=== PATIENT | male | born 1935 | race Caucasian/White ===

== ENCOUNTER 2024-11-07 12:23 | Inpatient (IN) ==
[2024-11-07] MEDS: ONDANSETRON 4 MG/2 ML VIAL IV ONE (13:07)
[2024-11-07] MEDS: cefTRIAXone 1 GM VIAL IV ONE (13:19)
[2024-11-07] MEDS: AZITHROMYCIN 500 MG in 0.9 % SODIUM CHLORIDE 250 ML IV ONE (13:41)
[2024-11-07 13:47] LABS: Basophils # (Auto) 0.01 K/mcL (0.00-0.30); Basophils % (Auto) 0 % (0.0-2.0); Eosinophils # (Auto) 0.02 K/mcL (0.00-0.70); Eosinophils % (Auto) 0.1 % (0.0-7.0); Hematocrit 52.4 % (40.1-51.0); Hemoglobin 16.8 g/dL (13.7-17.5); Lymphocytes # (Auto) 2.04 K/mcL (1.50-4.80); Mean Cell Volume 100.6 fL (80.0-100.0); Mean Corpuscular HGB Conc 32.1 g/dL (31.0-36.0); Mean Platelet Volume 10.2 fL (8.8-12.5); Monocytes # (Auto) 0.52 K/mcL (0.10-0.90); Monocytes % (Auto) 2.6 % (1.0-12.0); Neutrophils % (Auto) 87.1 % (38.0-78.0); Platelet Count 184 K/mcL (140-440); RBC 5.21 M/mcL (4.63-6.08); WBC 20.3 K/mcL (4.5-11.0)
[2024-11-07 14:08] LABS: ALT/SGPT 33 U/L (<40); AST/SGOT 30 U/L (<40); Albumin 4.2 gm/dL (3.2-5.2); Albumin/Globulin Ratio 1.6 (1.0-2.3); Alkaline Phosphatase 57 U/L (39-117); Bilirubin,Total 0.8 mg/dL (0.1-1.0); Blood Urea Nitrogen 24 mg/dL (8-23); Calcium 9.4 mg/dL (8.6-10.4); Carbon Dioxide 19 mmol/L (22-30); Chloride 102 mmol/L (96-108); Globulin 2.7 gm/dL (2.2-3.7); Glomerular Filtration Rate 38; Glucose 227 mg/dL (70-105); Potassium 4.8 mmol/L (3.3-5.1); Sodium 137 mmol/L (133-145)
[2024-11-07] MEDS ORDERED: BENZOCAINE/MENTHOL 1 LOZENGE PO PRN ×2 (14:27→16:01)
[2024-11-07] MEDS ORDERED: SUCRETS LOZENGE PO PRN (14:29)
[2024-11-07] MEDS: 0.9 % SODIUM CHLORIDE 1,000 ML IV ONE (14:33)
[2024-11-07] MEDS ORDERED: POLYETHYLENE GLYCOL 3350 17 GM PACKET PO PRN (16:01)
[2024-11-07] MEDS ORDERED: DEXTROSE 50% 50 ML VIAL IV PRN (16:01)
[2024-11-07] MEDS ORDERED: METOPROLOL TARTRATE 5 MG/5 ML VIAL IV PRN (16:01)
[2024-11-07] MEDS ORDERED: ONDANSETRON 4 MG/2 ML VIAL IV PRN (16:01)
[2024-11-07] MEDS ORDERED: METOCLOPRAMIDE 10 MG/2 ML VIAL IV PRN (16:01)
[2024-11-07] MEDS ORDERED: POTASSIUM CHLORIDE 40 MEQ in DEXTROSE 5% IN WATER 500 ML IV PRN (16:01)
[2024-11-07] MEDS ORDERED: POTASSIUM CHLORIDE 20 MEQ TABLET PO PRN ×2 (16:01)
[2024-11-07] MEDS ORDERED: DEXTROSE 31 GM ORAL.SUSP PO PRN (16:01)
[2024-11-07] MEDS ORDERED: MAGNESIUM SULFATE 2 GM/50 ML BAG IV PRN (16:01)
[2024-11-07] MEDS ORDERED: SENNOSIDES 1 TABLET PO PRN (16:01)
[2024-11-07] MEDS: cefTRIAXone 1 GM VIAL IV SCH (16:40)
[2024-11-07] MEDS: AZITHROMYCIN 500 MG in DEXTROSE 5% IN WATER 250 ML IV SCH (16:40)
[2024-11-07] MEDS: INSULIN LISPRO 1 UNIT/0.01 ML UNIT SQ SCH (17:19)
[2024-11-07] MEDS: REMDESIVIR 200 MG in 0.9 % SODIUM CHLORIDE 250 ML IV ONE (19:10)
[2024-11-07] MEDS: DEXAMETHASONE 4 MG TABLET PO SCH (19:12)
[2024-11-07] MEDS: DOCUSATE SODIUM 100 MG CAPSULE PO SCH (20:25)
[2024-11-07] MEDS: APIXABAN 5 MG TABLET PO SCH (20:31)
[2024-11-07] MEDS: IPRATROPIUM/ALBUTEROL 3 ML AMPUL.NEB NEB PRN (20:55)
[2024-11-08] MEDS: 0.9 % SODIUM CHLORIDE 10 ML SYRINGE IV SCH (00:30)
[2024-11-08 06:33] LABS: Basophils # (Auto) 0.02 K/mcL (0.00-0.30); Basophils % (Auto) 0.1 % (0.0-2.0); Eosinophils # (Auto) 0.01 K/mcL (0.00-0.70); Eosinophils % (Auto) 0 % (0.0-7.0); Hematocrit 46.2 % (40.1-51.0); Hemoglobin 15.2 g/dL (13.7-17.5); Lymphocytes # (Auto) 1.74 K/mcL (1.50-4.80); Lymphocytes % (Auto) 7.3 % (15.5-49.0); Mean Cell Volume 97.1 fL (80.0-100.0); Mean Corpuscular HGB Conc 32.9 g/dL (31.0-36.0); Mean Platelet Volume 11.2 fL (8.8-12.5); Monocytes # (Auto) 0.53 K/mcL (0.10-0.90); Monocytes % (Auto) 2.2 % (1.0-12.0); Neutrophils % (Auto) 89.8 % (38.0-78.0); Platelet Count 131 K/mcL (140-440); RBC 4.76 M/mcL (4.63-6.08); Red Cell Distribution Width 13.9 % (11.5-14.5); WBC 23.8 K/mcL (4.5-11.0)
[2024-11-08 07:18] LABS: ALT/SGPT 26 U/L (<40); AST/SGOT 35 U/L (<40); Albumin 3.4 gm/dL (3.2-5.2); Albumin/Globulin Ratio 1.4 (1.0-2.3); Alkaline Phosphatase 53 U/L (39-117); Bilirubin,Direct 0.3 mg/dL (<0.3); Bilirubin,Total 0.5 mg/dL (0.1-1.0); Blood Urea Nitrogen 28 mg/dL (8-23); Calcium 8.7 mg/dL (8.6-10.4); Carbon Dioxide 20 mmol/L (22-30); Chloride 107 mmol/L (96-108); Globulin 2.4 gm/dL (2.2-3.7); Glomerular Filtration Rate 41; Glucose 174 mg/dL (70-105); Lactate Dehydrogenase 255 U/L (135-225); Phosphorous 3.3 mg/dL (2.5-4.5); Potassium 4.3 mmol/L (3.3-5.1); Sodium 139 mmol/L (133-145); Triglycerides 31 mg/dL (<150); Uric Acid 6.5 mg/dL (2.5-8.0)
[2024-11-08] MEDS: cefTRIAXone 1 GM VIAL IV SCH (08:33)
[2024-11-08] MEDS ORDERED: amLODIPine 10 MG TABLET PO SCH (09:00)
[2024-11-08] MEDS: FINASTERIDE 5 MG TABLET PO SCH (10:17)
[2024-11-08] MEDS: LEVOTHYROXINE SODIUM 112 MCG TABLET PO SCH (10:18)
[2024-11-08] MEDS: SODIUM BICARBONATE 650 MG TABLET PO SCH (10:18)
[2024-11-08] MEDS: TOCILIZUMAB 700 MG in 0.9 % SODIUM CHLORIDE 65 ML IV SCH (10:18)
[2024-11-08] MEDS: TAMSULOSIN 0.4 MG CAPSULE PO SCH (10:18)
[2024-11-08] MEDS: FUROSEMIDE 40 MG/4 ML VIAL IV SCH (10:23)
[2024-11-08] MEDS: AZITHROMYCIN 500 MG in 0.9 % SODIUM CHLORIDE 250 ML IV SCH (10:48)
[2024-11-08] MEDS: REMDESIVIR 100 MG in 0.9 % SODIUM CHLORIDE 250 ML IV SCH (11:36)
[2024-11-08] MEDS: FAMOTIDINE 20 MG TABLET PO SCH (11:56)
[2024-11-08] MEDS: METOPROLOL SUCCINATE 25 MG TAB.XL.24H PO SCH (12:23)
[2024-11-08] MEDS: ATORVASTATIN 20 MG TABLET PO SCH (20:51)
[2024-11-08] MEDS: ACETAMINOPHEN 325 MG TABLET PO PRN (20:52)
[2024-11-09 06:41] LABS: Basophils # (Auto) 0.01 K/mcL (0.00-0.30); Basophils % (Auto) 0 % (0.0-2.0); Eosinophils # (Auto) 0.01 K/mcL (0.00-0.70); Eosinophils % (Auto) 0 % (0.0-7.0); Hematocrit 46.3 % (40.1-51.0); Hemoglobin 15.4 g/dL (13.7-17.5); Lymphocytes % (Auto) 8.2 % (15.5-49.0); Mean Cell Volume 96.9 fL (80.0-100.0); Mean Corpuscular HGB Conc 33.3 g/dL (31.0-36.0); Mean Platelet Volume 11.9 fL (8.8-12.5); Monocytes % (Auto) 4.8 % (1.0-12.0); Neutrophils % (Auto) 86.7 % (38.0-78.0); Platelet Count 133 K/mcL (140-440); RBC 4.78 M/mcL (4.63-6.08); Red Cell Distribution Width 13.9 % (11.5-14.5); WBC 23.1 K/mcL (4.5-11.0)
[2024-11-09 06:59] LABS: ALT/SGPT 36 U/L (<40); AST/SGOT 38 U/L (<40); Albumin 3.3 gm/dL (3.2-5.2); Albumin/Globulin Ratio 1.2 (1.0-2.3); Alkaline Phosphatase 61 U/L (39-117); Bilirubin,Direct 0.2 mg/dL (<0.3); Bilirubin,Total 0.5 mg/dL (0.1-1.0); Blood Urea Nitrogen 39 mg/dL (8-23); Calcium 9.4 mg/dL (8.6-10.4); Carbon Dioxide 23 mmol/L (22-30); Chloride 106 mmol/L (96-108); Globulin 2.8 gm/dL (2.2-3.7); Glomerular Filtration Rate 45; Glucose 229 mg/dL (70-105); Lactate Dehydrogenase 235 U/L (135-225); Phosphorous 2.7 mg/dL (2.5-4.5); Potassium 4.5 mmol/L (3.3-5.1); Sodium 141 mmol/L (133-145); Triglycerides 36 mg/dL (<150); Uric Acid 6.9 mg/dL (2.5-8.0)
[2024-11-09] MEDS: LACTOBACILLUS 1 CAPSULE PO SCH (08:30)
[2024-11-09] MEDS: SPIRONOLACTONE 25 MG TABLET PO SCH (08:30)
[2024-11-09] MEDS: INSULIN GLARGINE, HUMAN 1 UNIT/0.01 ML SQ SCH (08:31)
[2024-11-09 10:26] LABS: Band Neutrophils % 7 % (0-10); Lymphocytes % 10 % (15-49); Monocytes % (Manual) 2 % (1-12); Platelet Estimate NORMAL (Normal); RBC Morphology NORMAL (Normal); Reactive Lymphocytes 3 % (0-2); Segmented Neutrophils % 78 % (38-78)
[2024-11-09] MEDS: METOPROLOL SUCCINATE 25 MG TAB.XL.24H PO SCH (10:40)
[2024-11-09] MEDS: FUROSEMIDE 40 MG/4 ML VIAL IV SCH (10:41)
[2024-11-10 06:19] LABS: Basophils # (Auto) 0.01 K/mcL (0.00-0.30); Basophils % (Auto) 0.1 % (0.0-2.0); Eosinophils # (Auto) 0 K/mcL (0.00-0.70); Eosinophils % (Auto) 0 % (0.0-7.0); Hematocrit 43.1 % (40.1-51.0); Hemoglobin 14.7 g/dL (13.7-17.5); Lymphocytes # (Auto) 2.07 K/mcL (1.50-4.80); Lymphocytes % (Auto) 10.9 % (15.5-49.0); Mean Cell Volume 94.9 fL (80.0-100.0); Mean Corpuscular HGB Conc 34.1 g/dL (31.0-36.0); Mean Platelet Volume 11.5 fL (8.8-12.5); Monocytes # (Auto) 1.16 K/mcL (0.10-0.90); Monocytes % (Auto) 6.1 % (1.0-12.0); Neutrophils % (Auto) 82.7 % (38.0-78.0); Platelet Count 154 K/mcL (140-440); RBC 4.54 M/mcL (4.63-6.08); Red Cell Distribution Width 13.8 % (11.5-14.5); WBC 19.1 K/mcL (4.5-11.0)
[2024-11-10 06:23] LABS: ALT/SGPT 44 U/L (<40); AST/SGOT 40 U/L (<40); Albumin 3.5 gm/dL (3.2-5.2); Albumin/Globulin Ratio 1.5 (1.0-2.3); Alkaline Phosphatase 62 U/L (39-117); Bilirubin,Direct 0.3 mg/dL (<0.3); Bilirubin,Total 0.5 mg/dL (0.1-1.0); Blood Urea Nitrogen 43 mg/dL (8-23); Calcium 9.1 mg/dL (8.6-10.4); Carbon Dioxide 23 mmol/L (22-30); Chloride 104 mmol/L (96-108); Globulin 2.3 gm/dL (2.2-3.7); Glomerular Filtration Rate 49; Glucose 230 mg/dL (70-105); Lactate Dehydrogenase 242 U/L (135-225); Phosphorous 3.2 mg/dL (2.5-4.5); Potassium 3.9 mmol/L (3.3-5.1); Sodium 139 mmol/L (133-145); Triglycerides 45 mg/dL (<150); Uric Acid 6.8 mg/dL (2.5-8.0)
[2024-11-10] MEDS: OLANZapine 10 MG VIAL IM SCH (06:31)
[2024-11-10] MEDS: OLANZapine 10 MG VIAL ONE (06:33)
[2024-11-10] MEDS: amLODIPine 5 MG TABLET PO SCH (08:21)
[2024-11-10] MEDS: FUROSEMIDE 40 MG/4 ML VIAL IV ONE (08:24)
[2024-11-10] MEDS: LINEZOLID 600 MG/300 ML BAG IV ONE (12:06)
[2024-11-10 13:17] VITALS: TEMP 97.8; O2SAT 93
[2024-11-11] MEDS ORDERED: FAMOTIDINE 20 MG TABLET PO SCH (21:00)
== END 2024-11-10 12:58 | disposition home or self-care (01) | DRG 177 ==
LOC: ED 12:23 → MEDSUR 16:05 → ICU 23:35
PROVIDERS: ADMIT Internal Medicine; ATTEND Internal Medicine

== ENCOUNTER 2025-06-13 13:52 | Inpatient (IN) ==
[2025-06-13] MEDS ORDERED: IOPAMIDOL 100 ML BOTTLE IV ONE (13:53)
[2025-06-13] MEDS: ONDANSETRON 4 MG/2 ML VIAL IV ONE (14:41)
[2025-06-13 14:47] LABS: POC Blood Urea Nitrogen 27.0 (6-20); POC CO2 23.0 (22-30); POC Calcium, Ionized 1.16 (1.16-1.32); POC Glucose, Random 369.0 (70-105)
[2025-06-13 15:03] LABS: Basophils # (Auto) 0.03 K/mcL (0.00-0.30); Basophils % (Auto) 0.2 % (0.0-2.0); Eosinophils # (Auto) 0.16 K/mcL (0.00-0.70); Eosinophils % (Auto) 1.2 % (0.0-7.0); Hematocrit 46.0 % (40.1-51.0); Hemoglobin 15.4 g/dL (13.7-17.5); Lymphocytes # (Auto) 2.89 K/mcL (1.50-4.80); Lymphocytes % (Auto) 21.7 % (15.5-49.0); Mean Corpuscular HGB Conc 33.5 g/dL (31.0-36.0); Monocytes # (Auto) 1.13 K/mcL (0.10-0.90); Monocytes % (Auto) 8.5 % (1.0-12.0); Neutrophils % (Auto) 68.0 % (38.0-78.0); Platelet Count 253 K/mcL (140-440); RBC 4.73 M/mcL (4.63-6.08); WBC 13.3 K/mcL (4.5-11.0)
[2025-06-13 15:19] LABS: ALT/SGPT 22 U/L (<40); AST/SGOT 19 U/L (<40); Albumin 4.0 gm/dL (3.2-5.2); Albumin/Globulin Ratio 1.6 (1.0-2.3); Alkaline Phosphatase 73 U/L (39-117); Anion Gap 10.0 (8.0-16.0); Bilirubin,Total 0.3 mg/dL (0.1-1.0); Blood Urea Nitrogen 24 mg/dL (8-23); Calcium 9.2 mg/dL (8.6-10.4); Carbon Dioxide 25 mmol/L (22-30); Chloride 98 mmol/L (96-108); Globulin 2.5 gm/dL (2.2-3.7); Glucose 372 mg/dL (70-105); Potassium 4.3 mmol/L (3.3-5.1); Sodium 133 mmol/L (133-145)
[2025-06-13 16:55] LABS: Bilirubin,Urine NEGATIVE (Negative); Calcium Oxalate Crystals,Urine Mod /hpf; Color,Urine LT. YELLOW; Glucose,Urine (UA) >=1000 mg/dL (Negative); Ketones,Urine TRACE mg/dL (Negative); Leukocyte Esterase,Urine NEGATIVE /uL (Negative); PH,Urine 7.0 (5.0-9.0); Protein,Urine NEGATIVE (Negative); Specific Gravity,Urine 1.010 (1.000-1.035); Urobilinogen,Urine 0.2 mg/dL
[2025-06-13] MEDS ORDERED: DEXTROSE 50% 50 ML VIAL IV PRN (17:16)
[2025-06-13] MEDS ORDERED: IPRATROPIUM/ALBUTEROL 3 ML AMPUL.NEB NEB PRN (17:16)
[2025-06-13] MEDS ORDERED: hydrALAZINE 20 MG/ML VIAL IV PRN (17:16)
[2025-06-13] MEDS: 0.9 % SODIUM CHLORIDE 1,000 ML IV SCH (17:56)
[2025-06-13] MEDS: INSULIN LISPRO 1 UNIT/0.01 ML UNIT SQ SCH (17:56)
[2025-06-13] MEDS: 0.9 % SODIUM CHLORIDE 10 ML SYRINGE IV SCH (20:04)
[2025-06-13] MEDS: ONDANSETRON 4 MG/2 ML VIAL IV PRN (22:16)
[2025-06-14] MEDS: ACETAMINOPHEN 650 MG/65 ML BAG IV PRN (00:23)
[2025-06-14] MEDS: METOCLOPRAMIDE 10 MG/2 ML VIAL IV SCH (00:24)
[2025-06-14 07:01] LABS: C-Reactive Protein 0.15 mg/dL (0.03-0.80)
[2025-06-14 07:07] LABS: ALT/SGPT 18 U/L (<40); AST/SGOT 20 U/L (<40); Albumin 3.9 gm/dL (3.2-5.2); Albumin/Globulin Ratio 1.6 (1.0-2.3); Alkaline Phosphatase 71 U/L (39-117); Anion Gap 11.0 (8.0-16.0); Basophils # (Auto) 0.03 K/mcL (0.00-0.30); Basophils % (Auto) 0.2 % (0.0-2.0); Bilirubin,Total 0.4 mg/dL (0.1-1.0); Blood Urea Nitrogen 17 mg/dL (8-23); Calcium 9.3 mg/dL (8.6-10.4); Carbon Dioxide 25 mmol/L (22-30); Chloride 102 mmol/L (96-108); Eosinophils # (Auto) 0.07 K/mcL (0.00-0.70); Eosinophils % (Auto) 0.4 % (0.0-7.0); Globulin 2.5 gm/dL (2.2-3.7); Glucose 241 mg/dL (70-105); Hematocrit 49.2 % (40.1-51.0); Hemoglobin 16.5 g/dL (13.7-17.5); Lymphocytes # (Auto) 3.38 K/mcL (1.50-4.80); Lymphocytes % (Auto) 20.1 % (15.5-49.0); Mean Corpuscular HGB Conc 33.5 g/dL (31.0-36.0); Monocytes # (Auto) 1.84 K/mcL (0.10-0.90); Monocytes % (Auto) 10.9 % (1.0-12.0); Neutrophils % (Auto) 68.2 % (38.0-78.0); Platelet Count 256 K/mcL (140-440); Potassium 4.3 mmol/L (3.3-5.1); RBC 5.00 M/mcL (4.63-6.08); Sodium 138 mmol/L (133-145); WBC 16.8 K/mcL (4.5-11.0)
[2025-06-14 20:16] LABS: Estimated Average Glucose(eAG) 295 mg/dL; Hemoglobin A1C 11.9 % Hgb (4.0-6.0)
[2025-06-15 07:55] LABS: Basophils # (Auto) 0.04 K/mcL (0.00-0.30); Basophils % (Auto) 0.2 % (0.0-2.0); Eosinophils # (Auto) 0.20 K/mcL (0.00-0.70); Eosinophils % (Auto) 1.2 % (0.0-7.0); Hematocrit 46.7 % (40.1-51.0); Hemoglobin 15.5 g/dL (13.7-17.5); Lymphocytes # (Auto) 3.56 K/mcL (1.50-4.80); Lymphocytes % (Auto) 21.8 % (15.5-49.0); Mean Corpuscular HGB Conc 33.2 g/dL (31.0-36.0); Monocytes # (Auto) 1.95 K/mcL (0.10-0.90); Monocytes % (Auto) 11.9 % (1.0-12.0); Neutrophils % (Auto) 64.5 % (38.0-78.0); Platelet Count 247 K/mcL (140-440); RBC 4.66 M/mcL (4.63-6.08); WBC 16.3 K/mcL (4.5-11.0)
[2025-06-15 08:04] LABS: ALT/SGPT 14 U/L (<40); AST/SGOT 16 U/L (<40); Albumin 3.4 gm/dL (3.2-5.2); Albumin/Globulin Ratio 1.5 (1.0-2.3); Alkaline Phosphatase 61 U/L (39-117); Anion Gap 10.0 (8.0-16.0); Bilirubin,Direct 0.3 mg/dL (<0.3); Bilirubin,Total 0.5 mg/dL (0.1-1.0); Blood Urea Nitrogen 13 mg/dL (8-23); Calcium 8.3 mg/dL (8.6-10.4); Carbon Dioxide 24 mmol/L (22-30); Chloride 108 mmol/L (96-108); Globulin 2.2 gm/dL (2.2-3.7); Glucose 207 mg/dL (70-105); Phosphorous 2.1 mg/dL (2.5-4.5); Potassium 3.8 mmol/L (3.3-5.1); Sodium 142 mmol/L (133-145); Triglycerides 79 mg/dL (<150); Uric Acid 4.6 mg/dL (2.5-8.0)
[2025-06-15] MEDS: LOSARTAN 50 MG TABLET PO SCH (09:04)
[2025-06-15] MEDS: METOPROLOL SUCCINATE 50 MG TAB.XL.24H PO SCH (09:04)
[2025-06-15] MEDS: INSULIN GLARGINE, HUMAN 1 UNIT/0.01 ML SQ SCH (12:16)
[2025-06-15] MEDS: LACTATED RINGERS 1,000 ML IV SCH (12:20)
[2025-06-15] MEDS: POTASSIUM PHOSPHATE 40 MEQ in DEXTROSE 5% IN WATER 500 ML IV SCH (14:41)
[2025-06-15] MEDS: PYRIDOSTIGMINE BROMIDE 10 MG/2 ML AMPUL IV SCH (16:55)
[2025-06-15] MEDS: INSULIN LISPRO 1 UNIT/0.01 ML UNIT SQ SCH (22:04)
[2025-06-16 07:00] LABS: Basophils # (Auto) 0.02 K/mcL (0.00-0.30); Basophils % (Auto) 0.2 % (0.0-2.0); Eosinophils # (Auto) 0.37 K/mcL (0.00-0.70); Eosinophils % (Auto) 3.0 % (0.0-7.0); Hematocrit 41.0 % (40.1-51.0); Hemoglobin 13.6 g/dL (13.7-17.5); Lymphocytes # (Auto) 3.64 K/mcL (1.50-4.80); Lymphocytes % (Auto) 29.5 % (15.5-49.0); Mean Corpuscular HGB Conc 33.2 g/dL (31.0-36.0); Monocytes # (Auto) 1.44 K/mcL (0.10-0.90); Monocytes % (Auto) 11.7 % (1.0-12.0); Neutrophils % (Auto) 55.4 % (38.0-78.0); Platelet Count 218 K/mcL (140-440); RBC 4.13 M/mcL (4.63-6.08); WBC 12.3 K/mcL (4.5-11.0)
[2025-06-16 07:17] LABS: ALT/SGPT 13 U/L (<40); AST/SGOT 19 U/L (<40); Albumin 3.3 gm/dL (3.2-5.2); Albumin/Globulin Ratio 1.6 (1.0-2.3); Alkaline Phosphatase 55 U/L (39-117); Anion Gap 9.0 (8.0-16.0); Bilirubin,Direct 0.4 mg/dL (<0.3); Bilirubin,Total 0.6 mg/dL (0.1-1.0); Blood Urea Nitrogen 9 mg/dL (8-23); Calcium 8.2 mg/dL (8.6-10.4); Carbon Dioxide 25 mmol/L (22-30); Chloride 107 mmol/L (96-108); Globulin 2.1 gm/dL (2.2-3.7); Glucose 121 mg/dL (70-105); Phosphorous 3.8 mg/dL (2.5-4.5); Potassium 3.6 mmol/L (3.3-5.1); Sodium 141 mmol/L (133-145); Triglycerides 76 mg/dL (<150); Uric Acid 4.4 mg/dL (2.5-8.0)
[2025-06-16] MEDS: ATORVASTATIN 20 MG TABLET PO SCH (22:27)
[2025-06-17 07:01] LABS: Basophils # (Auto) 0.05 K/mcL (0.00-0.30); Basophils % (Auto) 0.5 % (0.0-2.0); Eosinophils # (Auto) 0.30 K/mcL (0.00-0.70); Eosinophils % (Auto) 3.0 % (0.0-7.0); Hematocrit 44.7 % (40.1-51.0); Hemoglobin 14.8 g/dL (13.7-17.5); Lymphocytes # (Auto) 3.24 K/mcL (1.50-4.80); Lymphocytes % (Auto) 32.2 % (15.5-49.0); Mean Corpuscular HGB Conc 33.1 g/dL (31.0-36.0); Monocytes # (Auto) 1.23 K/mcL (0.10-0.90); Monocytes % (Auto) 12.2 % (1.0-12.0); Neutrophils % (Auto) 51.8 % (38.0-78.0); Platelet Count 239 K/mcL (140-440); RBC 4.49 M/mcL (4.63-6.08); WBC 10.1 K/mcL (4.5-11.0)
[2025-06-17 07:13] LABS: ALT/SGPT 17 U/L (<40); AST/SGOT 23 U/L (<40); Albumin 3.5 gm/dL (3.2-5.2); Albumin/Globulin Ratio 1.5 (1.0-2.3); Alkaline Phosphatase 55 U/L (39-117); Anion Gap 10.0 (8.0-16.0); Bilirubin,Direct 0.3 mg/dL (<0.3); Bilirubin,Total 0.6 mg/dL (0.1-1.0); Blood Urea Nitrogen 11 mg/dL (8-23); Calcium 8.9 mg/dL (8.6-10.4); Carbon Dioxide 26 mmol/L (22-30); Chloride 105 mmol/L (96-108); Globulin 2.3 gm/dL (2.2-3.7); Glucose 167 mg/dL (70-105); Phosphorous 3.0 mg/dL (2.5-4.5); Potassium 4.0 mmol/L (3.3-5.1); Sodium 141 mmol/L (133-145); Triglycerides 92 mg/dL (<150); Uric Acid 5.0 mg/dL (2.5-8.0)
[2025-06-17] MEDS: LEVOTHYROXINE SODIUM 112 MCG TABLET PO SCH (07:33)
[2025-06-17] MEDS: FINASTERIDE 5 MG TABLET PO SCH (10:18)
[2025-06-17] MEDS: TAMSULOSIN 0.4 MG CAPSULE PO SCH (10:18)
[2025-06-17 12:31] VITALS: TEMP 97.6; O2SAT 97
== END 2025-06-17 12:20 | disposition home or self-care (01) | DRG 389 ==
LOC: ED 13:52 → MEDSUR 17:13
PROVIDERS: ADMIT Internal Medicine; ATTEND Student in an Organized Health Care Education/Training Program